=== PATIENT | male | born 1970 | race Caucasian/White ===

== ENCOUNTER 2017-04-28 06:00 | Day surgery (SDC) | payer OTHER ==
[~2017-04-28] VITALS: Ht 172.7 cm; Wt 84.1 kg
[~2017-04-28 06:00] MED LIST: CELE200 PO; NAPR500 PO
[2017-04-28] MEDS ORDERED: OXYC5 PO (15:49)
[2017-04-28] MEDS ORDERED: CYCL10 PO (15:52)
[2017-04-29] MEDS ORDERED: Percocet 5-3251 EACH PO (18:33)
[2017-04-29] MEDS ORDERED: Miralax17 GM PO (18:33)
[2017-04-29] MEDS ORDERED: Ativan0.5 MG SL (18:33)
[2018-02-28] MEDS ORDERED: METCAR500 PO (11:40)
[2018-02-28] MEDS ORDERED: ATEN25 PO (11:40)
[2018-02-28] MEDS ORDERED: GABA300 PO (11:40)
[2018-02-28] MEDS ORDERED: CELE200 PO (11:40)
== END 2017-04-28 18:30 | disposition home or self-care (01) ==
LOC: ORSCMMR 06:00 → ORD 07:30 → SURS 14:08 → ORSCMMR 18:30
PROVIDERS: Orthopaedic Surgery
PROC: 00NY0ZZ Release Lumbar Spinal Cord, Open Approach (ICD-10-PCS; principal; 2017-04-28 07:30)
DX: M48.062 Spinal stenosis, lumbar region with neurogenic claudication (principal)
CPT/HCPCS: 97116; 97161; 97530; G8978; G8979; G8980; J0171; J0690; J1100; J2250; J2270; J2370; J2405; J3010; J3370; J7030; J7120

== ENCOUNTER 2017-04-29 16:34 | Emergency (ER) | payer OTHER ==
[~2017-04-29] VITALS: Ht 172.7 cm; Wt 83.9 kg
[~2017-04-29 16:34] MED LIST changes: +CYCL10 PO; +OXYC5 PO
[2017-04-29 17:25] LABS: BASOPHILS ABSOLUTE AUTO 0.02 K/mm3 (0.00-0.23); BASOPHILS PERCENT AUTO 0 % (0-2); EOSINOPHILS ABSOLUTE AUTO 0.04 K/mm3 (0.00-0.68); EOSINOPHILS PERCENT AUTO 0 % (0-6); Hematocrit 39.9 % (37.0-53.0); Hemoglobin 13.9 g/dL (13.5-17.5); IMMATURE GRAN ABSOLUTE AUTO 0.02 K/mm3 (0.00-0.10); IMMATURE GRAN PERCENT AUTO 0 % (0-1); LYMPHOCYTES ABSOLUTE AUTO 0.98 K/mm3 (0.84-5.20); LYMPHOCYTES PERCENT AUTO 10 % (21-46); MONOCYTES PERCENT AUTO 11 % (4-13); Mean Corpuscular HGB 32.9 pg (26.0-34.0); Mean Corpuscular HGB Conc 34.8 g/dL (31.5-36.5); Mean Corpuscular Volume 94 fL (80-100); Mean Platelet Volume 9.3 fL (9.1-12.4); NEUTROPHILS ABSOLUTE AUTO 7.79 K/mm3 (1.96-9.15); NEUTROPHILS PERCENT AUTO 78 % (41-73); Platelet Count 194 K/mm3 (150-400); RDW Coefficient Variation 12.6 % (11.7-14.2); RDW Standard Deviation 43.1 fL (35.1-46.3); Red Blood Cell Count 4.23 M/mm3 (4.30-5.90); White Blood Cell Count 9.95 K/mm3 (4.00-11.30)
[2017-04-29] MEDS ORDERED: Percocet 5-3251 EACH PO (18:33)
[2017-04-29] MEDS ORDERED: Miralax17 GM PO (18:33)
[2017-04-29] MEDS ORDERED: Ativan0.5 MG SL (18:33)
[2018-02-28] MEDS ORDERED: GABA300 PO (11:40)
[2018-02-28] MEDS ORDERED: METCAR500 PO (11:40)
[2018-02-28] MEDS ORDERED: CELE200 PO (11:40)
[2018-02-28] MEDS ORDERED: ATEN25 PO (11:40)
== END 2017-04-29 19:25 | disposition home or self-care (01) ==
LOC: ER 16:34
PROVIDERS: Emergency Medicine
DX: G89.18 Other acute postprocedural pain (principal); M54.5 Low back pain; G89.29 Other chronic pain; Z88.0 Allergy status to penicillin; Z90.89 Acquired absence of other organs; Z98.1 Arthrodesis status
CPT/HCPCS: 85025; 96361; 96374; 96375; 96376; 99284; J1170; J1200; J2765; J7030

== ENCOUNTER 2018-01-16 06:08 | Day surgery (SDC) | payer OTHER ==
[~2018-01-16] VITALS: Ht 172.7 cm; Wt 85.6 kg
[~2018-01-16 06:08] MED LIST changes: +Ativan0.5 MG SL; +Miralax17 GM PO; +Percocet 5-3251 EACH PO
[2018-01-16] MEDS ORDERED: GABA300T24 (06:39)
[2018-01-16] MEDS ORDERED: CELE200 (06:39)
[2018-01-16] MEDS ORDERED: ATEN25 (06:39)
== END 2018-01-16 08:09 | disposition home or self-care (01) ==
LOC: ORSCSDS 06:08
PROVIDERS: Orthopaedic Surgery
PROC: 01N50ZZ Release Median Nerve, Open Approach (ICD-10-PCS; principal; 2018-01-16 07:15)
DX: G56.01 Carpal tunnel syndrome, right upper limb (principal); I10 Essential (primary) hypertension; M19.90 Unspecified osteoarthritis, unspecified site; Z79.899 Other long term (current) drug therapy
CPT/HCPCS: J0171; J2250; J3010; J7120

== ENCOUNTER → 2019-05-14 | Outpatient (CLI) | payer OTHER ==
[~2019-05-14] MED LIST changes: +ATEN25; +ATEN25 PO; +CELE200; +GABA300 PO; +GABA300T24; +METCAR500 PO
[2019-05-14 13:46] LABS: Influenza A Negative (NEGATIVE); Influenza B Negative (NEGATIVE)
== END ==
LOC: LAB 11:13 → LAB SHORT 11:13
PROVIDERS: Hospitalist
DX: R50.9 Fever, unspecified (principal)
CPT/HCPCS: 87804

== ENCOUNTER 2020-06-25 08:44 | Day surgery (SDC) | payer OTHER ==
[~2020-06-25] VITALS: Ht 172.7 cm; Wt 82.8 kg
== END 2020-06-25 11:08 | disposition home or self-care (01) ==
LOC: ORSCSDS 08:44
PROVIDERS: Internal Medicine Gastroenterology
PROC: 0DJD8ZZ Inspection of Lower Intestinal Tract, Via Natural or Artificial Opening Endoscopic (ICD-10-PCS; principal; 2020-06-25 10:00)
DX: Z12.11 Encounter for screening for malignant neoplasm of colon (principal); K64.4 Residual hemorrhoidal skin tags; Z83.71 Family history of colonic polyps; Z87.891 Personal history of nicotine dependence; Z79.899 Other long term (current) drug therapy
CPT/HCPCS: J2704; J7120

== ENCOUNTER → 2022-03-28 | Outpatient (CLI) | payer OTHER | END | disposition home or self-care (01) | LOC: LAB SHORT 07:49 | DX: L72.12 Trichodermal cyst (principal) | CPT/HCPCS: 88304 ==

== ENCOUNTER 2022-08-12 10:06 | Day surgery (SDC) | payer OTHER ==
[~2022-08-12] VITALS: Ht 172.7 cm; Wt 84.9 kg
--- NOTE | 2022-08-12 13:10 | NUR ---
08/12/22 1310 Kait Campa ARMS SECURED ON PADDED ARM BOARDS, DONUT UNDER HEAD, RIGHT LEG POSITIONED BY DR VUONG IN THE [facility].
[2022-08-12 14:45] VITALS: BP 111/73
== END 2022-08-12 15:22 | disposition home or self-care (01) ==
LOC: ORSCSDS 10:06
PROVIDERS: Podiatrist Foot & Ankle Surgery
PROC: 0SBF0ZZ Excision of Right Ankle Joint, Open Approach (ICD-10-PCS; principal; 2022-08-12 12:00)
PROC: 0SCF4ZZ Extirpation of Matter from Right Ankle Joint, Percutaneous Endoscopic Approach (ICD-10-PCS; principal; 2022-08-12 12:00)
DX: M19.071 Primary osteoarthritis, right ankle and foot (principal); M67.40 Ganglion, unspecified site; M25.671 Stiffness of right ankle, not elsewhere classified; M25.571 Pain in right ankle and joints of right foot; I10 Essential (primary) hypertension; Z79.899 Other long term (current) drug therapy
CPT/HCPCS: J0171; J1100; J1885; J2405; J2704; J2795; J3010; J7120

== ENCOUNTER → 2022-09-07 | Outpatient (CLI) | payer OTHER ==
[2022-09-07 18:44] LABS: Calcium, Blood 9.1 mg/dL (8.5-10.1); Creatinine, Blood 0.87 mg/dL (0.60-1.20); Potassium, Blood 4.2 mmol/L (3.5-5.5)
== END | disposition home or self-care (01) ==
LOC: LAB SHORT 08:35 → LAB 08:35
PROVIDERS: Hospitalist
DX: I10 Essential (primary) hypertension (principal)
CPT/HCPCS: 80048

== ENCOUNTER → 2024-11-14 | Outpatient (CLI) | payer OTHER ==
[2024-11-14 20:27] LABS: Anion Gap 5 mmol/L (3-11); Blood Urea Nitrogen 17 mg/dL (8-24); CHOL/HDL RATIO 2.9; CO2, Blood 30 mmol/L (21-32); Calcium, Blood 9.1 mg/dL (8.5-10.1); Chloride, Blood 105 mmol/L (98-108); Cholesterol 197 mg/dL (50-200); Creatinine, Blood 0.93 mg/dL (0.60-1.20); Glucose, Blood 99 mg/dL (70-99); HDL Cholesterol 68 mg/dL (>39); LDL/HDL RATIO 1.7; Low Density Lipoprotein Chol 119 mg/dL (0-110); Potassium, Blood 4.2 mmol/L (3.5-5.5); Sodium, Blood 136 mmol/L (136-145); Triglycerides 51 mg/dL (30-160); Very Low Density Lipoprot Chol 10 mg/dL (6-32)
== END ==
LOC: LAB SHORT 13:36 → LAB 13:36
PROVIDERS: Hospitalist
DX: I10 Essential (primary) hypertension (principal)
CPT/HCPCS: 80048; 80061